=== PATIENT | female | born 1945 | race Caucasian/White ===

== ENCOUNTER 2016-10-01 14:14 | Inpatient (IN) | payer MEDICARE, OTHER ==
[~2016-10-01] VITALS: Ht 172.7 cm; Wt 113.0 kg
[~2016-10-01 14:14] MED LIST: ALLEGRA ALLERG180 MG PO; CALCIUM PO; CENTRUM SILVER1 EAC4 PO; FLEXERIL-DPS10 MG PO; LEXAPRO DPS10 MG PO; MOBIC15 MG PO; MONTELUKAST SOD10 MG PO; OMEPRAZOLE40 MG PO; OXYCODONE IR PO; SENOKOT S1 TAB PO; TYLENOL325 MG PO; ULTRAM50 MG PO; WELLBUTRIN100 M1 PO; XARELTO10 MG PO
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
--- NOTE | 2016-10-04 20:57 | DS ---
ADMIT: 10/01/2016 RM/LOC: 524 [facility] MR#: [id number] [address] [address] IRAM PONCE [address] [place] [address] Discharge Summary SEX: F AGE: 71 : 1945 ADMISSION DATE: 10/01/2016 DISCHARGE DATE: 10/04/2016 FINAL DIAGNOSES: 1. Fall with humerus fracture displaced. 2. Hypertension. 3. Intractable pain. 4. Depression. REASON FOR ADMISSION: The patient is a 71-year-old female who had a mechanical fall at home. Suffered above-mentioned humerus fracture. Admitted for further pain control and surgery. HOSPITAL COURSE: The patient was admitted. Seen in consultation by Orthopedic Surgery. Had above-mentioned surgery. Surgery overall went okay. Had some difficulty with pain control postoperatively but ultimately improved. Plan is for skilled care for ongoing rehab given her immobility difficulty with following the shoulder repair. DISCHARGE INSTRUCTIONS: She will be discharged [place] a [place] [facility]. Follow up with Dr. Delgadillo in the next 1-2 weeks as an outpatient. Follow up with Orthopedic Surgery per their plan. Please see MAR for full details. Ronald Chandler MD/ pamella JOB #: [id number] CC: Tea Delgadillo MD, Attending Physician Tea Delgadillo MD, Family Physician
--- NOTE | 2016-10-19 10:38 | OR ---
ADMIT: 10/01/2016 RM/LOC: 524 [facility] MR#: [id number] [address] [address] IRAM PONCE [address] [place] [address] Operative/Delivery Room Report SEX: F AGE: 71 : 1945 SURGERY DATE: 10/02/2016 SURGEON: Tor Lees MD PREOPERATIVE DIAGNOSIS: Left comminuted proximal humerus fracture. POSTOPERATIVE DIAGNOSIS: Left three-part proximal humerus fracture. PROCEDURE: Left proximal humerus open reduction and internal fixation with intramedullary nailing and tuberosity repair. EDUCATION ANALYST: JOB Avila. COMPLICATION: None. ESTIMATED BLOOD LOSS: 100 mL. DESCRIPTION OF PROCEDURE: The patient was taken to the operating room, received a general anesthetic. She was placed in a semi-beach chair position. The left shoulder prepped and draped in standard fashion. Closed reduction was attempted. There was a displaced medial calcar fragment, displaced shaft fragment, it looked liked possible tuberosity involvement. We went ahead and made an incision off the anterolateral border of the acromion. Split the deltoid fibers. We then immobilized the rotator cuff. We placed some stay stitches in the rotator cuff to help immobilize and hold the head. There was a comminuted metaphyseal fracture. We rotated the arm and helped hold it reduced. We then placed a guide pin into the rotator cuff sulcus and passed down the medullary canal. We just gently reamed the medullary canal to 11, and elected using 11 mm gail. At that point, we placed an 11 mm short humeral nail down the medullary canal. We were able to use the sutures in the tuberosity of pulleys around the gail for future repair. At that point, we placed a spiral blade into the center of the femoral head, it had good purchase in the head. We then placed one distal locking bolt with the external jig. At that point, we then placed a locking bolt in the end cap. We then used the actual spiral blade and passed a total of 4 Ethibond sutures through the rotator cuff and tied these back to the spiral blade to repaired the tuberosity. At that point, the proximal humerus moved as a solid unit with good stability. At that point, we irrigated out the wound. We then repaired deltoid split with 0 Vicryl, subcutaneous with 2-0 Vicryl, lurdes in the skin. We applied sterile dressings. She was placed in immobilizer and was taken to recovery in stable condition with no complications. Tor Lees MD/ mary JOB #: [id number] CC: Tea Delgadillo, Attending Physician ADMIT: 10/01/2016 RM/LOC: 524 [facility] MR#: [id number] [address] [place] [id number] [address] PONCE [address] [place] [address] Operative/Delivery Room Report SEX: F AGE: 71 : 1945 Tea Delgadillo, Family Physician
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
== END 2016-10-04 11:50 | DRG 494 ==
LOC: ER 14:14 → 5MS 15:24
PROVIDERS: ADMIT Internal Medicine
PROC: 0PSD06Z Reposition Left Humeral Head with Intramedullary Internal Fixation Device, Open Approach (ICD-10-PCS; principal; 2016-10-02)
DX: S42.292A Other displaced fracture of upper end of left humerus, initial encounter for closed fracture (principal); I10 Essential (primary) hypertension; W10.8XXA Fall (on) (from) other stairs and steps, initial encounter; E78.5 Hyperlipidemia, unspecified; D50.9 Iron deficiency anemia, unspecified; F32.9 Major depressive disorder, single episode, unspecified; M19.90 Unspecified osteoarthritis, unspecified site; N32.81 Overactive bladder; M85.80 Other specified disorders of bone density and structure, unspecified site; J45.909 Unspecified asthma, uncomplicated; K21.9 Gastro-esophageal reflux disease without esophagitis; Z98.1 Arthrodesis status; Z96.659 Presence of unspecified artificial knee joint; Z96.649 Presence of unspecified artificial hip joint